=== PATIENT | female | born 1940 | race Caucasian/White ===

== ENCOUNTER → 2016-11-23 | Day surgery (SDC) | payer MEDICARE, OTHER ==
[~2016-11-23] VITALS: Ht 149.9 cm; Wt 89.4 kg
[~2016-11-23] MED LIST: CITA20TA11 PO; LEVO137T2 PO; LISI10TA PO; Lactated Ringer's 1,000 ML IV SCH; MetoCLOpramide 5 mg/mL 2 mL Inj IVPUSH PRN; Ondansetron 2 mg/mL 2 mL Inj IVPUSH PRN; RISP2TAB3 PO; TRAZ-118 PO; WARF4TAB6 PO
[2016-11-23 14:58] VITALS: BP 143/71; PULSE 65; RESP 14; O2SAT 95
--- NOTE | 2016-11-23 16:00 | PCM.HPANE ---
Patient Data Surgeon Admitting Provider: Attending Provider:Oscar Portillo MD Primary Care Physician:Jonas Armstrong DO Other Provider:Sho Gouldingham Anesthesia Reason for Visit Dysphagia Ht/WT & BMI Height (Feet): 4 Height (Inches): 11 Weight (Kilograms): 89.36 Body Mass Index 39.00 Allergies Coded Allergies: bupropion (Verified Allergy, Unknown, 11/23/16) codeine (Verified Allergy, Unknown, 11/23/16) iodine (Verified Allergy, Unknown, 11/23/16) latex (Verified Allergy, Unknown, 11/23/16) Past Anesthesia History Anesthesia History: Denies:: Abnormal Airway, Anesthesia Reactions, Difficult Intubation, Fam Anesthesia Reaction, Fam Malignant Hypertherm, Malignant Hyperthermia Diabetes History Hx Diabetes?: Yes MRSA MRSA: No Medications Home Meds Incl Beta Charlene: No Reported Medications Warfarin Sodium 4 Mg Tablet4 Mg PO DAILY 30 Days Ref 0 11/23/16 Lisinopril 10 Mg [id number] Mg PO DAILY 30 Days Ref 0 11/23/16 Citalopram 20 Mg [id number] Mg PO DAILY Ref 0 11/23/16 Trazodone 100 Mg [id number] Mg PO HS Ref 0 11/23/16 Risperidone 2 Mg Tablet3 Mg PO DAILY 30 Days Ref 0 11/23/16 Levothyroxine 137 Mcg [id number] Mcg PO DAILY Ref 0 11/23/16 History History of ENT Problems?: No HEENT History: Positive for:: Dysphagia (SOLIDS) Hearing Problem (L>R [place]) Denies:: Abnormal Airway Difficult Intubation Denture Type: None Teeth Condition: Within Normal Limits Hx of Heart Problems?: Yes Cardiovascular History: Positive for:: Hypertension Denies:: AICD Atrial Fibrillation Chest Pain Pacemaker Valvular Heart Disease Other Cardiac History: hx blood clot on warfarin Hx of Respiratory Problem?: Yes Respiratory History: Positive for:: Cough Denies:: Asthma COPD Hemoptysis Pneumonia Tuberculosis Hx Neurologic Problems?: No Neurological History: Denies:: CVA Hx of GI Problems?: Yes Gastrointestinal History: Positive for:: Gastroesphageal Reflux Heartburn Other GI Pertinent History: dysphagia Hx of Problems?: No Female Hx: Denies:: Currently Hx Musculoskeletal Problems?: Yes Musculoskeletal History: Positive for:: Fibromyalgia Joint Replacement (KNEE) Psycho Social History: Positive for:: Anxiety Hx Depression Hx Surgeries?: Yes (L TKA, R ARTHRO, THYROIDECTOMY, LAP ROGELIO) Hx Any Other Health Problems?: Yes Hx Diabetes: Yes Hx Alcohol Use: NoHave You Smoked inLast 12 mo: No Stop/Bang Treated for Sleep Apnea?: Yes Do You Have a CPAP Machine?: Yes (NON-COMPLIANT WITH USE) PEDRO Risk Assessment: High Risk, =/>3 Yes Risk Assessment Category Category 1A: Patient has history of documented sleep apnea, and HAS NOT received any narcotic, sedative or anesthesia administration during this stay. Category 1B: Patient has history of documented sleep apnea, and HAS received any narcotic , sedative or anesthesia administration during this stay Category 2: Patient has SUSPECTED Obstructive Sleep Apnea, and HAS received any narcotic , sedative or anesthesia administration during this stay. Category 3: Patient has SUSPECTED Obstructive Sleep Apnea and HAS NOT received narcotic, sedative or anesthesia administration during this stay. Category 4: Outpatient in Procedural Areas with known sleep apnea or who screen positive for High Risk via the STOP/BANG questionnaire. Exam Exam Vital Signs Vital Signs Date Time Temp Pulse Resp B/P Pulse Ox O2 Delivery O2 Flow Rate FiO2 11/23/16 14:58 65 14 143/71 95 Room Air General Appearance: Oriented X3 HEENT/AIRWAY: MP 4 Lungs: Normal Air Movement Heart: Regular Rate/Rhythm Plan Impression Patient chart reviewed, patient interviewed and anesthestic plan with risks, benefits, and alternatives discussed, and informed consent obtained. ASA Physical Status: ASA3 Severe Disease Anesthetic Plan: MAC Bene/Risks/Altern/Consents: Yes HP Complete Prior to Induction: Yes Flako Corley MD Nov 23, 2016 16:00
[2016-11-23 16:40] VITALS: BP 106/64; PULSE 72; RESP 16; O2SAT 98
[2016-11-23 16:59] VITALS: BP 139/68; PULSE 67; RESP 18; O2SAT 97
[2016-11-23 17:00] VITALS: BP 123/74; PULSE 65; RESP 16; O2SAT 96
--- NOTE | 2016-11-23 20:47 | ENDO ---
[address] [address] ENDOSCOPY PROCEDURE PATIENT: SUYAPA GA : 1940 MR#: [id number] ADMIT: 11/23/2016 JOB ID: [id number] OPERATION: 1. Esophagogastroduodenoscopy (EGD) with biopsy. 2. Colonoscopy with biopsy. PREOPERATIVE DIAGNOSIS(ES): Dysphagia, diarrhea. POSTOPERATIVE DIAGNOSIS(ES): 1. A widely open patent Schatzki ring status post biopsy. 2. Mild nonerosive gastritis. 3. Small internal hemorrhoids. ANESTHESIA: Monitored anesthesia care. COMPLICATIONS: None. ESTIMATED BLOOD LOSS: Minimal. DESCRIPTION OF PROCEDURE: After the risks and benefits were explained to the patient, informed consent was obtained. After anesthesia was administered, an upper endoscope was inserted into the mouth, intubated through the esophagus, stomach, second portion of duodenum, and the mucosa carefully examined. After the procedure was done, the scope was withdrawn and the procedure terminated. The colonoscope was then inserted from the rectum to the terminal ileum and the mucosa carefully examined. Prep of the patient was fair. After the procedure was done, the scope was withdrawn and the procedure terminated. FINDINGS: Upon inspection of the esophagus, there was a widely open, patent Schatzki ring in the distal esophagus. Z-line located 40 cm from incisors. Upon entering stomach, there was mild nonerosive gastritis that was seen. Retroflexion was normal. Duodenal bulb, first and second portion were normal. Biopsies taken at duodenum, antrum, body, and distal esophagus. Upon inspection of the anus no masses, hemorrhoids, ulcers, or fissures that were seen. Throughout the entire examination, there were no polyps, masses, or lesions. Biopsies taken at the terminal and random colon. Retroflexion showed small internal hemorrhoids. IMPRESSION: 1. Small internal hemorrhoids. 2. Widely open, patent Schatzki ring. 3. Mild nonerosive gastritis. RECOMMENDATION: 1. Await pathology results. 2. Protonix 40 mg by mouth once a day. 3. Followup with Kajal Chakraborty PA-C in the [facility] as an outpatient.
--- NOTE | 2016-11-28 11:22 | PATH ---
SURGICAL PATHOLOGY Attending Physician:Oscar Portillo MD CASE STATUS: Signed Out PATIENT NAME: SUYAPA GA PID: [id number] : 1940 DATE COLLECTED:11/23/2016 00:00 SPECIMEN: 1: Duodenum, Biopsy 2: Stomach, Antrum, Biopsy 3: Esophagus, Biopsy 4: Esophagus, Biopsy 5: Gastric, Biopsy 6: Ileum, Biopsy 7: Colon, Biopsy CLINICAL HISTORY: 1). DUODENUM BIOPSY 2). ANTRUM BIOPSY 3). MID ESOPHAGUS BIOPSY 4). DISTAL ESOPHAGUS BIOPSY 5). GASTRIC BIOPSY, RULE OUT H.PYLORI 6). TERMINAL ILEUM BIOPSY 7). RANDOM COLON BIOPSY FINAL DIAGNOSIS: 1. Duodenum Biopsy: Fragments of normal appearing small bowel mucosa. Normal delicate mucosal villi present. Negative for significant inflammation, dysplasia and malignancy. 2. Gastric Antrum Biopsy: Fragments of antral mucosa negative for significant inflammation. Negative for evidence of Helicobacter on H&E stain. Negative for intestinal metaplasia. Negative for dysplasia and malignancy. 3. Mid Esophagus Biopsy: Fragments of squamous mucosa negative for significant atypia. Negative for intraepithelial eosinophils. 4. Distal Esophagus Biopsy: Fragments of squamous mucosa only with no gastric type mucosa identified. Negative for dysplasia and malignancy. Negative for intraepithelial eosinophils. 5. Gastric Body Biopsy: Fragments of fundic mucosa negative for significant inflammation. Negative for evidence of Helicobacter on H&E stain. Negative for intestinal metaplasia. Negative for dysplasia and malignancy. 6. Terminal Ileum Biopsy: Fragments of normal appearing small bowel consistent with terminal ileum. Negative for granulomas. Negative for significant inflammation, dysplasia and malignancy. 7. Random Colon Biopsies: Multiple fragments of normal appearing colon mucosa. Negative for significant architectural distortion. Negative for significant inflammation, dysplasia and malignancy. ICD10: R10.9 GROSS DESCRIPTION: The specimen is received in seven formalin filled containers labeled with the patient's name. 1). The specimen is sublabeled "duodenum" and consists of 4 tiny portions of tissue which aggregate to 0.2 x 0.2 x 0.2 CM. The specimen is entirely submitted in cassette 1A. 2). The specimen is sublabeled "antrum" and consists of 2 portions of tissue which aggregate to 0.3 x 0.3 x 0.2 CM. The specimen is entirely submitted in cassette 2A. 3). The specimen is sublabeled "mid esophagus" and consists of 2 portions of tissue which aggregate to 0.3 x 0.3 x 0.2 CM. The specimen is entirely submitted in cassette 3A. 4). The specimen is sublabeled "distal esophagus" and consists of 2 portions of tissue which aggregate to 0.3 x 0.3 x 0.2 CM. The specimen is entirely submitted in cassette 4A. 5). The specimen is sublabeled "gastric" consists of 2 portions of tissue which aggregate to 0.3 x 0.3 x 0.2 CM. The specimen is entirely submitted in cassette 5A. 6). The specimen is sublabeled "terminal ileum" and consists of a 0.3 x 0.3 x 0.2 CM portions of tissue which is entirely submitted in cassettes 6A. 7). The specimen is sublabeled "random colon" and consists of 5 portions of tissue which aggregate to 0.4 x 0.4 x 0.2 CM. The specimen is entirely submitted in cassette 7A 11/24/2016 [facility] ICD-9 CODES: CPT CODES: 1: 38450 2: 81427 3: 66595 4: 40174 5: 29428 6: 89379 7: 92002 Electronically Signed Out Ryan Hatfield MD [facility] Pathology [facility] [address], [place] [address] Technical component performed at [facility], [facility] [address], [place], [address]
== END | disposition home or self-care (01) ==
LOC: END 14:20
PROVIDERS: ATTEND Internal Medicine Gastroenterology
DX: R19.7 Diarrhea, unspecified (principal); K64.8 Other hemorrhoids; K22.2 Esophageal obstruction; K29.70 Gastritis, unspecified, without bleeding; E03.9 Hypothyroidism, unspecified; E11.9 Type 2 diabetes mellitus without complications; G47.33 Obstructive sleep apnea (adult) (pediatric); I50.30 Unspecified diastolic (congestive) heart failure; I11.0 Hypertensive heart disease with heart failure; Z86.718 Personal history of other venous thrombosis and embolism; Z79.01 Long term (current) use of anticoagulants
CPT/HCPCS: 43239; 45380; J7120